=== PATIENT | female | born 1970 | race Caucasian/White ===

== ENCOUNTER 2017-06-21 00:11 | Emergency (ER) | payer BC ==
[2017-06-21] MEDS ORDERED: NS 1,000 ML IV ONE ×2 (00:33→02:43)
[2017-06-21 01:02] LABS: PLATELET COUNT 242 10^3/uL (150-400)
[2017-06-21] MEDS ORDERED: HYDROmorphONE/DILAUDID 2 MG/ML INJ IVP ONE (01:17)
[2017-06-21] MEDS ORDERED: KETOROLAC 15 MG/1 ML SDV IVP ONE (01:17)
--- NOTE | 2017-06-21 01:20 | EDPHY ---
H & P Stated Complaint: ABD PAIN FOR PAST FEW HRS, NOT UTI SX, EPIGASTRIC AREA Time Seen by Provider: 06/21/17 00:59 HPI/ROS: HPI The patient presents with abdominal pain which began at about 5:00 p.m. Tonight which has been constant and intense. It is in her epigastrium and right upper quadrant, it is not improved with Tums or acetaminophen. She feels nauseated and has been belching. She denies any vomiting. She denies any dark or bloody stools. As she does have a history of gallstones, though they have not bothered her in several years.. She did have a lunch of tamales with some spicy salsa. REVIEW OF SYSTEMS Constitutional: No fever, no chills. Eyes: No discharge. ENT: No sore throat. Cardiovascular: No chest pain, no palpitations. Respiratory: No cough, no shortness of breath. Gastrointestinal: See HPI Genitourinary: No hematuria. Musculoskeletal: No back pain. Skin: No rashes. Neurological: No headache. PMHx: Exercise-induced asthma Soc Hx: Housed with her family PHYSICAL General Appearance: Alert, no distress Eyes: Pupils equal and round no pallor or injection ENT, Mouth: Mucous membranes moist Respiratory: There are no retractions, lungs are clear to auscultation Cardiovascular: Regular rate and rhythm Gastrointestinal: Abdomen is soft and tender in the right upper quadrant without rebound or guarding Neurological: A&O, moves all extremities Skin: Warm and dry, no rashes Musculoskeletal: Neck is supple non tender Extremities: symmetrical, full range of motion Psychiatric: Patient is oriented X 3, there is no agitation Source: Patient Exam Limitations: No limitations - Personal History LMP (Females 10-55): Now Current Tetanus/Diphtheria Vaccine: Unsure Current Tetanus Diphtheria and Acellular Pertussis (TDAP): Unsure - Medical/Surgical History Hx Asthma: Yes Hx Chronic Respiratory Disease: No Hx Diabetes: No Hx Cardiac Disease: No Hx Renal Disease: No Hx Cirrhosis: No Hx Alcoholism: No Hx HIV/AIDS: No Hx Splenectomy or Spleen Trauma: No Other PMH: Bunion surgery, progesterone therapy, asthma exercise induced. - Social History Smoking Status: Never smoked Constitutional: Initial Vital Signs Temperature (C) 36.5 C 06/21/17 00:14 Heart Rate 63 06/21/17 00:14 Respiratory Rate 18 /08/18 00:14 Blood Pressure 129/85 H 06/21/17 00:14 O2 Sat (%) 98 06/21/17 00:14 O2 Delivery Mode Room Air Allergies/Adverse Reactions: No Known Allergies Allergy (Verified 06/21/17 00:17) Home Medications: Medication Instructions Recorded Albuterol [Proventil Inhaler] 1 - 2 puffs IH DAILY PRN 02/24/13 diphenhydrAMINE [Benadryl] 25 mg PO Q6 PRN 02/24/13 Ibuprofen [Motrin (*)] 800 mg PO Q6-8PRN #30 tab 09/02/15 Control Pills 06/21/17 Ondansetron Odt [Zofran Odt 4 mg 4 mg PO Q4 PRN #10 tab 06/21/17 (*)] Medical Decision Making - Diagnostics Imaging Results: Right upper quadrant ultrasound demonstrates 2 cm gallstone within the gallbladder neck, with other gallstones present, there is no sonographic signs of cholecystitis, this is discussed with Dr. Yuen of Radiology. Imaging: Discussed imaging studies w/ will call clerk Radiologist, I viewed and interpreted images myself Differential Diagnosis: 47-year-old healthy female presents with right upper quadrant abdominal pain and nausea for the last several hours. Differential diagnosis includes symptomatic cholelithiasis, cholecystitis, gastritis, early varicella zoster. In the emergency department, patient was given IV fluid and pain medication. She felt much better. Labs were checked and were all unremarkable, she did not have a white blood cell count and liver tests were normal. Ultrasound did demonstrate stone in gallbladder neck without any signs of cholecystitis. I feel the patient is suffering from symptomatic cholelithiasis. She had another episode of this in 2013. I have explained to her that we can admit her to the hospital for cholecystectomy if her pain is severe or she can be discharged home with outpatient evaluation. She was observed in the department for several hours and continued to feel well. She eventually decided that she would like to go home. Repeat abdominal exam was benign with no tenderness. I will discharge her home with instructions for follow up with Dr. Puri. We have discussed dietary modifications. She is happy with this plan. - Data Points Laboratory Results: Laboratory Results 06/21/17 00:20 06/21/17 00:20 06/21/17 06/21/17 06/21/17 01:19 01:19 00:20 WBC RBC Hgb Hct MCV MCH MCHC RDW Plt Count MPV Neut % (Auto) Lymph % (Auto) [place] % (Auto) Eos % (Auto) Baso % (Auto) Nucleat RBC Rel Count Absolute Neuts (auto) Absolute Lymphs (auto) Absolute Monos (auto) Absolute Eos (auto) Absolute Basos (auto) Absolute Nucleated RBC Immature Gran % Immature Gran # Sodium 137 mEq/L mEq/L (135-145) Potassium 4.1 mEq/L mEq/L (3.5-5.2) Chloride 101 mEq/L mEq/L (97-110) Carbon Dioxide 24 mEq/l mEq/l (22-31) Anion Gap 12 mEq/L mEq/L (8-16) BUN 12 mg/dL mg/dL (7-23) Creatinine 0.9 mg/dL mg/dL (0.6-1.0) Estimated GFR > 60 Glucose 97 mg/dL mg/dL (70-100) Calcium 9.4 mg/dL mg/dL (8.5-10.4) Total Bilirubin 0.6 mg/dL mg/dL (0.1-1.4) Conjugated Bilirubin 0.5 mg/dL mg/dL (0.0-0.5) Unconjugated Bilirubin 0.1 mg/dL mg/dL (0.0-1.1) AST 22 IU/L IU/L (14-46) ALT 32 IU/L IU/L (9-52) Alkaline Phosphatase 53 IU/L IU/L (38-126) Total Protein 7.1 g/dL g/dL (6.3-8.2) Albumin 4.0 g/dL g/dL (3.5-5.0) Lipase 177 IU/L IU/L (23-300) Urine Color YELLOW Urine Appearance CLEAR Urine pH 5.0 (5.0-7.5) Ur Specific [place] 1.024 (1.002-1.030) Urine Protein NEGATIVE (NEGATIVE) Urine Ketones NEGATIVE (NEGATIVE) Urine Blood 2+ H (NEGATIVE) Urine Nitrate NEGATIVE (NEGATIVE) Urine Bilirubin NEGATIVE (NEGATIVE) Urine Urobilinogen NEGATIVE EU EU (0.2-1.0) Ur Leukocyte Esterase NEGATIVE (NEGATIVE) Urine RBC 1-3 /hpf /hpf (0-3) Urine WBC 1-3 /hpf /hpf (0-3) Ur Epithelial Cells Not Reported Urine Mucus TRACE /lpf /lpf (NONE-1+) Urine Glucose NEGATIVE (NEGATIVE) Urine Test NEGATIVE 06/21/17 00:20 WBC 7.71 10^3/uL 10^3/uL (3.80-9.50) RBC 4.19 10^6/uL 10^6/uL (4.18-5.33) Hgb 13.2 g/dL g/dL (12.6-16.3) Hct 38.4 % % (38.0-47.0) MCV 91.6 fL fL (81.5-99.8) MCH 31.5 pg pg (27.9-34.1) MCHC 34.4 g/dL g/dL (32.4-36.7) RDW 12.8 % % (11.5-15.2) Plt Count 242 10^3/uL 10^3/uL (150-400) MPV 10.0 fL fL (8.7-11.7) Neut % (Auto) 46.6 % % (39.3-74.2) Lymph % (Auto) 38.5 % % (15.0-45.0) Knox % (Auto) 9.6 % % (4.5-13.0) Eos % (Auto) 4.3 % % (0.6-7.6) Baso % (Auto) 0.6 % % (0.3-1.7) Nucleat RBC Rel Count 0.0 % % (0.0-0.2) Absolute Neuts (auto) 3.59 10^3/uL 10^3/uL (1.70-6.50) Absolute Lymphs (auto) 2.97 10^3/uL 10^3/uL (1.00-3.00) Absolute Monos (auto) 0.74 10^3/uL 10^3/uL (0.30-0.80) Absolute Eos (auto) 0.33 10^3/uL 10^3/uL (0.03-0.40) Absolute Basos (auto) 0.05 10^3/uL 10^3/uL (0.02-0.10) Absolute Nucleated RBC 0.00 10^3/uL 10^3/uL (0-0.01) Immature Gran % 0.4 % % (0.0-1.1) Immature Gran # 0.03 10^3/uL 10^3/uL (0.00-0.10) Sodium Potassium Chloride Carbon Dioxide Anion Gap BUN Creatinine Estimated GFR Glucose Calcium Total Bilirubin Conjugated Bilirubin Unconjugated Bilirubin AST ALT Alkaline Phosphatase Total Protein Albumin Lipase Urine Color Urine Appearance Urine pH Ur Specific [place] Urine Protein Urine Ketones Urine Blood Urine Nitrate Urine Bilirubin Urine Urobilinogen Ur Leukocyte Esterase Urine RBC Urine WBC Ur Epithelial Cells Urine Mucus Urine Glucose Urine Test Medications Given: Discontinued Medications Hydromorphone HCl (Dilaudid) 0.5 mg IVP EDNOW ONE Stop: 06/21/17 01:18 Last Admin: 06/21/17 01:24 Dose: 0.5 mg Sodium Chloride (Ns) 1,000 mls @ 0 mls/hr IV ONCE ONE PRN Reason: Wide Open Stop: 06/21/17 00:34 Last Admin: 06/21/17 00:34 Dose: 1,000 mls Sodium Chloride (Ns) 1,000 mls @ 0 mls/hr IV ONCE ONE PRN Reason: Wide Open Stop: 06/21/17 02:44 Last Admin: 06/21/17 02:45 Dose: 1,000 mls Ketorolac Tromethamine (Toradol) 15 mg IVP EDNOW ONE Stop: 06/21/17 01:18 Last Admin: 06/21/17 01:24 Dose: 15 mg Ondansetron HCl (Zofran) 4 mg IVP EDNOW ONE Stop: 06/21/17 02:25 Last Admin: 06/21/17 02:26 Dose: 4 mg Ondansetron HCl (Zofran Odt 4 Mg Prepack#2) 1 btl TAKEHOME EDNOW ONE Stop: 06/21/17 05:17 Last Admin: 06/21/17 05:26 Dose: 1 btl Departure - Departure Disposition: Home, Routine, Self-Care Clinical Impression: Biliary colic Condition: Good Instructions: Ondansetron (By mouth), Biliary Colic (ED) Additional Instructions: I recommend you use ibuprofen 400 mg every 6 hr as needed for pain. You should avoid any greasy, fried, fatty foods. Please call Dr. Puri to make an appointment to be seen for follow-up in the next few days. You can always return to the emergency department if your pain is worse. Referrals: Princess Orellana MD [Primary Care Provider] - As per Instructions Gómez Puri MD [Medical Doctor] - As per Instructions Prescriptions: Ondansetron Odt [Zofran Odt 4 mg (*)] 4 mg PO Q4 PRN #10 tab PRN Reason: Nausea/Vomiting, Can'T Take Po
[2017-06-21] MEDS ORDERED: ONDANSETRON 4 MG/2 ML VIAL IVP ONE (02:24)
[2017-06-21] MEDS ORDERED: ONDANSETRON 4MG PREPACK#2 BTL TAKEHOME ONE (05:16)
[2017-06-21 05:36] VITALS: BP 119/72
== END 2017-06-21 05:38 | disposition home or self-care (01) ==
DX: K80.50 Calculus of bile duct without cholangitis or cholecystitis without obstruction (principal)
CPT/HCPCS: 96374; J1170; J1885

== ENCOUNTER → 2017-06-23 | Day surgery (SDC) | payer BC ==
--- NOTE | 2017-06-22 17:49 | GHP ---
[f rep st] PREOP HISTORY AND PHYSICAL DATE OF ADMISSION: 06/23/2017 HISTORY OF PRESENT ILLNESS: Nasreen is a 47-year-old female, status post emergency department visit fo r severe right upper quadrant pain with nausea and without fevers, radiation or vomiting about 2 days ago. She was found to have a large gallstone measuring about 2.2 cm lodged in the neck of her gallb ladder with some sludge. She felt better that evening and so opted to go home, rather than having antonio rgery since her is out of town, and she did not have good support at the time. Her pain retu rned yesterday, but is better today. She has no prior abdominal surgical history. She had a similar episode in 2013 with a negative cardiac workup, but no definite diagnosis. She has been unable to t olerate fried foods for about 10 years. PAST MEDICAL HISTORY: Includes migraine headache, exercise-induced asthma, bunions, low blood pressu re. PAST SURGICAL HISTORY: [place] tooth extraction. MEDICATIONS: Sumatriptan, Zyrtec, probiotics. ALLERGIES: No known drug allergies. SOCIAL HISTORY: Patient is and has a 12-year-old daughter. FAMILY HISTORY: Negative for gallstones. REVIEW OF SYSTEMS: Negative, aside from the HPI. A 10-point review done. PHYSICAL EXAMINATION: GENERAL: Reveals an alert, oriented, well-developed, well-nourished, well-christopher omed 47-year-old female in no acute distress. HEENT: Normocephalic, atraumatic. Pupils are equal a nd round. Sclerae are anicteric. CHEST: Clear to auscultation bilaterally. CARDIAC: Regular rate and rhythm. ABDOMEN: Soft with right upper quadrant tenderness without guarding. : Deferred. E XTREMITIES: Warm without edema. NEUROLOGIC: Grossly intact. PSYCHIATRIC: Normal mood and affect. IMPRESSION: This is a 47-year-old female with cholelithiasis. PLAN: Plan is to proceed with laparoscopic cholecystectomy. Risks and options have been discussed i ncluding, but not limited to, bleeding, infection, nerve injury, bile leak, retained stone, need for ERCP, open surgery, and other problems, and she requests to proceed. /[id number]/MODL
[~2017-06-23] MED LIST: ACETAMINOPHEN 500 MG TAB PO PRN; ALBUTEROL 3 ML DEYVIAL IH PRN; BUPIVACAINE 0.5% 30 ML SDV ONE; DEXAMETHASONE 4 MG/ML VIAL IVP PRN; DEXAMETHASONE 4 MG/ML VIAL ONE; HEPARIN 1000 UNIT/1 ML MDV ONE; HYDROCODONE/APAP 5/325 TAB ONE; HYDROCODONE/APAP 5/325 TAB PO PRN; KETOROLAC 30 MG/1 ML SDV ONE; LIDOCAINE 2% 5 ML SDV ONE; LIDOCAINE HCL 160 MG/4 ML LTA KIT TP ONE; LR 1,000 ML IV ONE; LR 500 ML IV PRN; METOCLOPRAMIDE 10 MG/2 ML VIAL IVP PRN; METOCLOPRAMIDE 10 MG/2 ML VIAL ONE; MIDAZOLAM 2 MG/2 ML VIAL ONE; NALOXONE HCL 0.4 MG/ML INJ IVP PRN; ONDANSETRON 4 MG/2 ML VIAL IVP PRN; ONDANSETRON 4 MG/2 ML VIAL ONE; PROMETHAZINE HCL 25 MG/ML INJ IVP PRN; PROPOFOL 200 MG/20 ML VIAL ONE; RANITIDINE 50 MG/2 ML VIAL ONE; ROCURONIUM 50 MG/5 ML VIAL ONE; SUGAMMADEX SODIUM 200 MG/2 ML VIAL IVP ONE; ceFAZolin 1 GM/5 ML SYR ONE; cefOXitin SODIUM 2 GM in STERILE WATER INJ 21 ML IV ONE; fentaNYL 100 MCG/2 ML INJ IVP PRN; fentaNYL 100 MCG/2 ML INJ ONE; oxyCODONE IR 5 MG TAB PO PRN
--- NOTE | 2017-06-23 10:19 | PDANEPAE ---
ANE Past Medical History - Cardiovascular History Hx Hypertension: No Hx Arrhythmias: No Hx Chest Pain: No Hx Coronary Artery / Peripheral Vascular Disease: No Hx CHF / Valvular Disease: No Hx Palpitations: No - Pulmonary History Hx COPD: No Hx Asthma/Reactive Airway Disease: Yes Hx Recent Upper Respiratory Infection: No Hx Oxygen in Use at Home: No Hx Sleep Apnea: No Pulmonary History Comment: exercise induced asthma - Neurologic History Hx Cerebrovascular Accident: No Hx Seizures: No Hx Dementia: No - Endocrine History Hx Diabetes: No - Renal History Hx Renal Disorders: No - Liver History Hx Hepatic Disorders: No - Neurological & Psychiatric Hx Hx Neurological and Psychiatric Disorders: No - Cancer History Hx Cancer: No - Congenital Disorder History Hx Congenital Disorders: No - GI History Hx Gastrointestinal Disorders: No - Chronic Pain History Chronic Pain: No - Surgical History Prior Surgeries: bunion ANE Review of Systems Review of Systems: - Exercise capacity METS (RN): 6 METS ANE Patient History - Allergies Allergies/Adverse Reactions: No Known Allergies Allergy (Verified 06/21/17 00:17) - Home Medications Home Medications: Albuterol [Proventil Inhaler] 1 - 2 puffs IH DAILY PRN 02/24/13 [Last Taken 1 Year Ago ~06/23/16] diphenhydrAMINE [Benadryl] 25 mg PO Q6 PRN 02/24/13 [Last Taken 06/19/17] Control Pills 06/21/17 [Last Taken 06/18/17] Acetaminophen [Tylenol ES 500 mg (*)] 06/23/17 [Last Taken 06/20/17] Aspirin/Acetaminophen/Caffeine [Excedrin Extra Strength Caplet] 06/23/17 [Last Taken 06/22/17 18:00] Cetirizine HCl [Zyrtec] 06/23/17 [Last Taken 06/22/17] Probiotic 06/23/17 [Last Taken 06/22/17] - NPO status NPO Since - Liquids (Date): 06/22/17 NPO Since - Liquids (Time): 10:30 NPO Since - Solids (Date): 06/22/17 NPO Since - Solids (Time): 20:00 - Smoking Hx Smoking Status: Never smoked - Family Anes Hx Family Hx Anesthesia Complications: none ANE Labs/Vital Signs - Vital Signs Blood Pressure: 121/68 Heart Rate: 59 Respiratory Rate: 15 O2 Sat (%): 98 Height: 172.72 cm Weight: 64.864 kg ANE Physical Exam - Airway Neck exam: FROM Mallampati Score: Class 1 Mouth exam: normal dental/mouth exam - Pulmonary Pulmonary: no respiratory distress, no rales or rhonchi, clear to auscultation - Cardiovascular Cardiovascular: regular rate and rhythym, no murmur, rub, or gallop - ASA Status ASA Status: II ANE Anesthesia Plan Anesthesia Plan: general endotracheal anesthesia
--- NOTE | 2017-06-23 11:23 | POSTOPPROG ---
Post Op Note Date of Operation: 06/23/17 Surgeon: Gómez Puri Senior Sales Operations Analyst: Norah Anesthesiologist: Tyrell Anesthesia: GET(General Endotracheal) Pre-op Diagnosis: Cholelithiasis Post-op Diagnosis: same Indication: Pain Procedure: Lap omer Findings: hydrops of the gall bladder Inf/Abcess present in the surg proc area at time of surgery?: No Depth: Organ Space EBL: Minimal Specimen(s): 1. Gall bladder
--- NOTE | 2017-06-23 12:37 | POSTANESTH ---
Post Anesthetic Evaluation Cardiovascular Status: Normal, Stable, Similar to Pre-Op Cond Respiratory Status: Normal, Stable, Similar to Pre-op Cond. Level of Consciousness/Mental Status: Can Participate in Eval Pain Control: Adequate, Prn Tx Ordered Nausea/Vomiting Control: Adequate, Prn Tx Ordered Complications Possibly Related to Anesthesia: None Noted
[2017-06-23 13:32] VITALS: BP 133/84
== END | disposition home or self-care (01) ==
LOC: F3E 08:06 → UNDOADMOB 08:06 → FSGY 08:06 → EDSTATUS 09:30 → UNDODISOB 13:53
PROVIDERS: ATTEND Surgery
PROC: 0FT44ZZ Resection of Gallbladder, Percutaneous Endoscopic Approach (ICD-10-PCS; principal; 2017-06-23 10:15)
DX: K80.20 Calculus of gallbladder without cholecystitis without obstruction (principal)
CPT/HCPCS: J0694; J1100; J1885; J2250; J2405; J2704; J2765; J2780; J3010